=== PATIENT | female | born 1995 ===

== ENCOUNTER 2022-12-27 11:40 | Outpatient (CLI) | payer MEDICAID, SELFPAY | END 2022-12-27 11:41 | disposition home or self-care (01) | PROVIDERS: Visit Provider Student in an Organized Health Care Education/Training Program | DX: Z34.90 Encounter for supervision of normal pregnancy, unspecified, unspecified trimester (principal); Z3A.00 Weeks of gestation of pregnancy not specified | CPT/HCPCS: 36415; 86644; 86747 ==

== ENCOUNTER 2023-01-28 05:15 | Inpatient (IN) | payer MEDICAID, SELFPAY ==
[2023-01-28] VITALS (117 sets, daily range): BP systolic 95–174; BP diastolic 37–160; PULSE 59–139; RESP 18; TEMP 35.9–36.5; O2SAT 84–100; BMI 40.7
--- NOTE | 2023-01-28 05:15 | LDADM ---
This patient, Deirdre Mendoza, was admitted to Labor/Delivery/Recovery 103 on 01/28/23 at 05:15. Plans for labor, pain management and were discussed with patient. Patient/family oriented to hospital policies and general routines including ID bracelet, bed and alarms, visiting hours, pain management, procedures, bathroom and other care routines, personal items, smoking policy, room service/diet and guest tray routines, infant security routines, and visiting hours. Patient/Family are encouraged to report perceived risks to care and to ask questions if they do not understand what they are told or what they should do. See OBIX for further documentation.
[2023-01-28 06:01] LABS: Basophils Percent Auto 0.4 % (0.2-1.2); Eosinophils Absolute Auto 0.2 K/mm3 (0-0.3); Eosinophils Percent Auto 2.4 % (0-4.4); Hematocrit 35.8 % (37.0-47.0); Hemoglobin 12.1 g/dL (12.0-15.0); Immature Granulocyte Absolute 0.03 K/mm3 (0.00-0.031); Immature Granulocyte Percent A 0.3 % (0-0.5); Lymphocytes Absolute Auto 2.87 K/mm3 (0.9-3.2); Lymphocytes Percent Auto 31.1 % (18.3-44.2); Mean Corpuscular HGB Conc 33.8 g/dl (32-36); Mean Corpuscular Hemoglobin 29.4 pg (26-34); Mean Corpuscular Volume 87.1 fl (80-100); Mean Platelet Volume 12.6 fl (7.4-10.4); Monocytes Absolute Auto 0.5 K/mm3 (0.1-0.6); Monocytes Percent Auto 4.9 % (2.6-8.5); Neutrophils Absolute Auto 5.6 K/mm3 (1.3-6.7); Neutrophils Percent Auto 60.9 % (45.5-73.1); Platelet Count Result 166 k/mm3 (150-375); Red Blood Count 4.11 M/mm3 (4.2-5.4); Red Cell Distribution Width 13.8 % (11.5-14.5); White Blood Count 9.2 K/mm3 (4.5-10.0)
[2023-01-28 06:54] LABS: HIV 1/2 Ab P24 Ag Result Negative (Negative)
[2023-01-28] MEDS: OXYTOCIN 30 UNITS/NS 500 ML 30 UNITS/500 ML BAG IV CONT (07:00)
[2023-01-28] MEDS: LACTATED RINGERS 1,000 ML 125 ML IV CONT ×2 (07:01→12:33)
[2023-01-28] MEDS: fentaNYL CITRATE INJ (*CRX) 100 MCG/2 ML VIAL 50 MCG IV PUSH ×2 (08:32→11:55)
--- NOTE | 2023-01-28 08:56 | WPDANESEPP ---
Anes - Eval Pre Procedure Procedure: Labor Epidural Date/Time: 01/28/23 08:56 Surgeon: Wai Preop Diagnosis: Labor Pain Pre Op Diagnosis: IOL Patient Data Age: 27 Gender: F Height: 1.65 m Weight: 111 kg Last Vital Signs Temp 36.5 C 01/28/23 07:28 Pulse 65 01/28/23 08:45 BP 121/64 01/28/23 08:45 O2 Del Method Room Air 01/28/23 06:31 Allergies Allergy/AdvReac Type Severity Reaction Status Date / Time No Known Allergies Allergy Verified 01/23/23 13:31 Home Medications Medication Instructions Recorded Confirmed Type No Home Medications 12/20/22 01/28/23 History Laboratory Tests 01/28/23 05:51 WBC 9.2 K/mm3 (4.5-10.0) RBC 4.11 L M/mm3 (4.2-5.4) Hgb 12.1 g/dL (12.0-15.0) Hct 35.8 L % (37.0-47.0) MCV 87.1 fl (80-100) MCH 29.4 pg (26-34) MCHC 33.8 g/dl (32-36) RDW 13.8 % (11.5-14.5) Plt Count 166 k/mm3 (150-375) MPV 12.6 H fl (7.4-10.4) Immature Gran % (Auto) 0.3 % (0-0.5) Neut % (Auto) 60.9 % (45.5-73.1) Lymph % (Auto) 31.1 % (18.3-44.2) Travis % (Auto) 4.9 % (2.6-8.5) Eos % (Auto) 2.4 % (0-4.4) Baso % (Auto) 0.4 % (0.2-1.2) Lymph # (Auto) 2.87 K/mm3 (0.9-3.2) Travis # (Auto) 0.5 K/mm3 (0.1-0.6) Eos # (Auto) 0.2 K/mm3 (0-0.3) Baso # (Auto) 0.0 K/mm3 (0.0-0.1) Abs Immat Gran (auto) 0.03 K/mm3 (0.00-0.031) Absolute Neuts (auto) 5.6 K/mm3 (1.3-6.7) Absolute Nucleated RBC 0.0 K/mm3 (0.0-0.012) Nucleated RBC % 0.0 % (0.0-0.2) RPR Pending HIV 1&2 Ab/P24 Ag 4thGn Negative (Negative) Blood Type O Positive Antibody Screen Negative : gestational age (, ALBERTA 02/01/23) Patient hx anesthesia problems: none Family hx anesthesia problems: none Results Review: All pre-operative results and documents have been reviewed as part of the pre-operative evaluation. [facility] Surgical History Surgical History Hx of cholecystectomy Family History Family History Mother Diabetes mellitus Hypertension Father Diabetes mellitus Hypertension Social History Social History Smoking status: Former smoker Alcohol intake: former Substance use: never Lack of Transportation: No Lack of Food: Never True Current Housing: I Have Housing Concerned About Future Housing: No Difficulty Paying Gas/Electric Bills: No Difficulty Paying for Meds: No Currently Unemployed: No Education: High School Diploma/GED Difficulty w/ Childcare or Family Care: No Living arrangements: with family Occupation/Education: unemployed Gender identity (if verbalized by the patient): Female Sexual Orientation (if Verbalized by the Patient): Straight or Heterosexual Spiritual care concerns: No Exam Day of Procedure 01/28/23 08:56
[2023-01-28 10:57] LABS: Rapid Plasma Reagin Non-Reactive (NonReactive)
[2023-01-28] MEDS: fentaNYL CITRATE INJ (*CRX) 100 MCG/2 ML VIAL IV PUSH (12:56)
--- NOTE | 2023-01-28 14:42 | WPDHPUPDATE1 ---
History and Physical Update Update Date/Time: 01/28/23 14:42 27-year-old presents a 39 weeks for elective induction of labor. has been uncomplicated thus far. History and Physical has been reviewed, including an updated exam of the patient. There are NO changes in the patient's condition. Risks, benefits, and alternatives have been discussed and questions answered. Patient agrees to proceed with procedure. A/P: Admit to L&D Routine admission orders labs reviewed Rh positive GBS negative plan for Pitocin induction of labor Continuous external monitoring
--- NOTE | 2023-01-28 14:45 | PM.OBPRVD ---
OB - Delivery Note Procedure Procedure: Patient pushed for a spontaneous vaginal delivery. A loose nuchal cord x 1 was noted and reduced on the perineum. The fetus was delivered atraumatically and placed on the maternal abdomen. The cord was clamped and cut after 1 minute of life. The cord was double clamped and cut and a segment of cord was collected for cord gases. Cord blood was collected for blood type and Coomb's testing. The placenta delivered spontaneously and was noted to be intact. The perineum was inspected and there were no lacerations noted. The uterus was firm and good hemostasis was noted. The patient and fetus were stable in the delivery room. Delivery monitor: External FHT Route of delivery: Episiotomy description: None Specimen: No Quantitative Blood Loss (ml): 200 Disposition: Floor () Complications: No immediate complications Baby Time of : 14:06 Weeks of gestation at delivery: 39 gender: Female presentation: vertex position: Left Occiput Anterior Placenta delivery description: Spontaneous Cord Vessel Description: 3 Vessels, Nuchal Cord and Loose score one minute: 7 score five minutes: 9 AMG Delivery Billing Delivery Delivery: Delivery Charge
[2023-01-28] MEDS: OXYTOCIN 30 UNITS/NS 500 ML 30 UNITS/500 ML BAG 125 UNITS IV CONT (14:49)
--- NOTE | 2023-01-28 17:33 | PC.NURSE ---
Patient transferred to post room #291 via ( W/C ). Support person present. Oriented to unit, room, information board, rooming in, admission packet and security measures. Patient verbalizes understanding.
[2023-01-28] MEDS: WITCH HAZEL 40 PADS 1 PAD TOPICAL (18:38)
[2023-01-28] MEDS: BENZOCAINE 20% AER SPR (*SP) 56 GM CAN 1 SPRAY TOPICAL (18:38)
[2023-01-28] MEDS: IBUPROFEN 600 MG TABLET PO (19:32)
[2023-01-28] MEDS: ACETAMINOPHEN 325 MG TABLET 650 MG PO (21:28)
[2023-01-29 00:22] VITALS: BP 98/46; PULSE 73; RESP 18; TEMP 36.4; O2SAT 100
[2023-01-29] MEDS: IBUPROFEN 600 MG TABLET PO ×3 (01:42→16:40)
[2023-01-29 06:05] LABS: Hematocrit 28.8 % (37.0-47.0); Hemoglobin 9.3 g/dL (12.0-15.0)
[2023-01-29] MEDS: POLYSACCHARIDE IRON COMPLEX 150 MG CAPSULE PO ×2 (07:22→16:41)
[2023-01-29] MEDS: MULTIVIT/MIN/PREN/FOL AC/IRON TABLET 1 TAB PO (07:22)
[2023-01-29] MEDS: DOCUSATE SODIUM 100 MG CAPSULE PO (07:23)
--- NOTE | 2023-01-29 07:33 | PM.OBDSVD ---
DS: Admitting Diagnosis Discharge Date 01/29/23 Admitting Diagnosis intrauterine at term DS: Discharge Diagnosis Discharge Diagnosis (1) Supervision of high risk , unspecified, third trimester: Code(s): O09.93 - Supervision of high risk , unspecified, third trimester Status: Acute OB - DS: Summary OB Procedures : None OB Procedures Intrapartum: Spontaneous Vag Delivery OB Procedures: : None Status at Discharge Functional status at discharge: independent ambulation Overall status at discharge: patient is back to baseline Time Spent with Patient Time attestation: Total time spent providing and/or coordinating discharge services: Time spent: Less than 30 minutes Exam Const: General: comfortable and no acute distress Resp: Effort & Inspection: normal respiratory effort Auscultation: clear to auscultation bilaterally Cardio: Rate: regular rate GI: GI Palp: Yes Soft to palpation Auscultation: normal bowel sounds Other: Fundus firm below umbilicus Psych: Appearance: grossly normal Mental Status: mental status grossly normal Affect: normal affect DS: Data Data Completed and Pending Labs on day of discharge: Labs from last 24 hours 01/29/23 01/28/23 05:57 05:51 Hgb 9.3 L Hct 28.8 L RPR Non-reactive Discharge Plan Discharge Discharging Clinician: Amado Carreno Patient Disposition: Home, Self-Care Activity: as tolerated and pelvic rest Diet: regular Patient Instructions: Antibiotic Form, Vaginal Delivery (DC) Stand Alone Forms: General Discharge Information Follow-up/Referrals: Amado Carreno MD [Physician] - Discharge Medications: New polysaccharide iron complex 150 mg iron Capsule 150 mg PO BIDWM Qty: 60 0RF acetaminophen 500 mg tablet 500 mg PO Q6H PRN (Reason: pain) Qty: 30 0RF ibuprofen 600 mg tablet 600 mg PO Q6H PRN (Reason: pain) Qty: 30 0RF No Action No Home Medications Date of admission: 01/28/23 05:15 Primary Care Provider: PHYSICIAN,PRODUCTS MECHANICAL DESIGN ENGINEER Admitting Provider: Amado Carreno Attending physician on admission: Amado Carreno Condition: Stable
[2023-01-29 08:38] VITALS: BP 119/59; PULSE 71; RESP 18; TEMP 36.3; O2SAT 99
[2023-01-29] MEDS: ACETAMINOPHEN 325 MG TABLET 650 MG PO (11:35)
[2023-01-29 12:26] VITALS: BP 111/68; PULSE 79; RESP 16; TEMP 36.5; O2SAT 98
== END 2023-01-29 17:38 | disposition home or self-care (01) | DRG 560 ==
LOC: ANHLDR 05:23 → ANHOB2 17:35
PROVIDERS: Admitting Provider Student in an Organized Health Care Education/Training Program; Visit Provider Student in an Organized Health Care Education/Training Program
DX: O69.81X0 Labor and delivery complicated by cord around neck, without compression, not applicable or unspecified (principal); Z37.0 Single live birth; Z3A.39 39 weeks gestation of pregnancy
CPT/HCPCS: 36415; 85014; 85018; 85025; 86592; 86703; 86850; 86900; 86901; A9270; G0432; J2590; J2795; J3010; J7120

== ENCOUNTER 2023-03-18 10:28 | Outpatient (CLI) | payer OTHER, SELFPAY ==
[2023-03-18 11:02] LABS: Basophils Percent Auto 0.6 % (0.2-1.2); Eosinophils Absolute Auto 0.1 K/mm3 (0-0.3); Eosinophils Percent Auto 2.2 % (0-4.4); Hematocrit 37.7 % (37.0-47.0); Hemoglobin 12.3 g/dL (12.0-15.0); Immature Granulocyte Absolute 0.02 K/mm3 (0.00-0.031); Immature Granulocyte Percent A 0.3 % (0-0.5); Lymphocytes Percent Auto 46.1 % (18.3-44.2); Mean Corpuscular HGB Conc 32.6 g/dl (32-36); Mean Corpuscular Hemoglobin 29.6 pg (26-34); Mean Corpuscular Volume 90.6 fl (80-100); Mean Platelet Volume 11.3 fl (7.4-10.4); Monocytes Absolute Auto 0.4 K/mm3 (0.1-0.6); Monocytes Percent Auto 6.3 % (2.6-8.5); Neutrophils Absolute Auto 2.9 K/mm3 (1.3-6.7); Neutrophils Percent Auto 44.5 % (45.5-73.1); Platelet Count Result 219 k/mm3 (150-375); Red Blood Count 4.16 M/mm3 (4.2-5.4); Red Cell Distribution Width 13.3 % (11.5-14.5); White Blood Count 6.5 K/mm3 (4.5-10.0)
[2023-03-18 11:14] LABS: Alanine Aminotransferase 32 U/L (6-35); Albumin Level 4.5 g/dL (3.5-5.1); Alkaline Phosphatase 59 U/L (38-126); Anion Gap 8 mmol/L (8-16); Aspartate Amino Transferase 31 U/L (14-36); Bilirubin,Total 0.5 mg/dL (0.2-1.3); Blood Urea Nitrogen 14 mg/dL (7-17); Calcium 9.1 mg/dL (8.4-10.2); Carbon Dioxide 26 mmol/L (22-30); Chloride 105 mmol/L (98-107); Cholesterol 173 mg/dL (0-200); Estimated Glomerular Filt Rate > 60; Glucose 94 mg/dL (65-110); HDL Direct 55 mg/dL; Potassium 4.2 mmol/L (3.4-5.0); Sodium 139 mmol/L (137-145); Triglycerides 173 mg/dL (<150)
[2023-03-18 11:25] LABS: LDL Cholesterol Direct 88 mg/dL
[2023-03-18 11:29] LABS: Beta HCG Quantitative < 2.39 mIU/ML
[2023-03-18 11:48] LABS: Thyroid Stimulating Hormone Reflex 0.995 uIU/mL (0.465-4.68)
[2023-03-18 12:04] LABS: Vitamin D 25 Hydroxy 26.2 ng/mL
[2023-03-18 12:19] LABS: Folic Acid 14.1 ng/mL (2.76->20)
== END 2023-03-18 10:29 | disposition home or self-care (01) ==
PROVIDERS: Referring Provider Internal Medicine; Visit Provider Student in an Organized Health Care Education/Training Program
DX: Z30.430 Encounter for insertion of intrauterine contraceptive device (principal); E55.9 Vitamin D deficiency, unspecified; R79.89 Other specified abnormal findings of blood chemistry
CPT/HCPCS: 36415; 80053; 80061; 82306; 82607; 82746; 84443; 84702; 85025

== ENCOUNTER 2023-06-07 02:23 | Emergency (ER) | payer OTHER, SELFPAY ==
--- NOTE | ~2023-06-07 | XR_ITS ---
Portable chest x-ray Comparison: None Clinical History: Chest pain Findings: Lungs are clear, without focal consolidation or pleural effusion. Cardiomediastinal silho uette is unremarkable. Bones and soft tissues are unremarkable. Impression: Normal chest. Reviewed, dictated and finalized at location M. LTY PRINTING MACHINE OPERATOR Impression: Normal chest.
[2023-06-07 02:27] VITALS: BP 134/84; PULSE 84; RESP 16; TEMP 36.7; O2SAT 100
[2023-06-07 03:26] VITALS: BP 139/80; PULSE 77; PULSE 79; RESP 13; TEMP 36.4; O2SAT 99
[2023-06-07 04:57] VITALS: BP 127/74; PULSE 75; RESP 17; O2SAT 100
--- NOTE | 2023-06-07 06:38 | ECG_ITS ---
Measurements Intervals [place] Rate: 71 P: 37 NM: 157 QRS: 55 QRSD: 93 T: 34 QT: 401 QTc: 436 Interpretive Statements SINUS RHYTHM BASELINE ARTIFACT- I, III, AVR, AVL NORMAL ECG NO PREVIOUS ECG AVAILABLE FOR COMPARISON Electronically Signed On 06-07-2023 7:01:22 TAX ADVISOR by Gulshan Escudero D.O.
--- NOTE | 2023-06-07 06:38 | ED.GENADULT ---
HPI - General Adult General Chief complaint: Unspecified Stated complaint: bodyaches Time Seen by Provider: 06/07/23 05:10 Source: patient Limitations: no limitations History of Present Illness HPI narrative: Patient is a 28-year-old female presents to the emergency department complaining of ?not feeling well? for the past 2-3 days. Patient states that she is having some aches in her lower back in addition to her chest and states that she has diffuse chest ?discomfort? States that it is not a pain necessarily however she does get some slight pain when she takes a deep breath in for denies any history of this pain in the past, denies radiation of pain, states it comes and goes, has not tried anything for the pain, has a nose anything making the pain better or worse. Patient denies cough, fever, recent injuries, recent illness, diarrhea, nausea, vomiting, diaphoresis, rash, numbness, weakness, abdominal pain, dysuria, hematuria, urinary frequency, urinary urgency, sore throat, nasal congestion, sick contacts. Patient states her last menstrual period was sometime in April however she got started on control at the time of her delivering a baby approximately 4 months ago. Patient also states she was recently started on a new medication for high cholesterol. Patient also notes separately that she sometimes gets some tingling in her fingers when she is lying down with his clothes away promptly when not lying down and seems to be positional. Patient denies being a smoker, denies history of hypertension or diabetes. Related Data Home Medications Medication Instructions Recorded Confirmed etonogestrel 68 mg subdermal 1 implant subdermal ONCE 03/19/23 implant (Nexplanon) Allergies Allergy/AdvReac Type Severity Reaction Status Date / Time No Known Allergies Allergy Verified 03/19/23 14:05 Review of Systems Review of Systems: A 10 system review of systems was completed on the patient and is negative except for what is stated in the HPI. Nursing and ancillary documentation was reviewed. [facility] Past Medical History Medical History (Updated 06/07/23 @ 07:57 by Doni Finley DO) Encounter for surveillance of other contraceptives Surgical History Surgical History (Updated 03/19/23 @ 14:06 by Pamela Zhang CMA) H/O gynecological procedure Nexplanon insertion 03/19/23 Hx of cholecystectomy Family History Family History Mother Diabetes mellitus Hypertension Father Diabetes mellitus Hypertension Social History Social History Smoking status: Former smoker Alcohol intake: former Substance use: never Lack of Transportation: No Lack of Food: Never True Current Housing: I Have Housing Concerned About Future Housing: No Difficulty Paying Gas/Electric Bills: No Difficulty Paying for Meds: No Currently Unemployed: No Education: High School Diploma/GED Difficulty w/ Childcare or Family Care: No Living arrangements: with family Occupation/Education: unemployed Gender identity (if verbalized by the patient): Female Sexual Orientation (if Verbalized by the Patient): Straight or Heterosexual Spiritual care concerns: No Comments At time of signature, I have reviewed and agree with nursing past medical, surgical, social and family history unless otherwise noted. Please see the nursing chart for further information. There is no relevant family history pertinent to the presenting complaint. Exam Narrative: CONST: No acute distress. Well nourished. Obese. HENMT: Head is normocephalic and atraumatic. Moist mucous membranes. No posterior oropharynx erythema. EYES: No conjunctival icterus, injection, or pallor. PERRL. NECK: No meningeal signs. RESP: Able to speak in full sentences. Normal respiratory effort. CTAB. CARDIO: Regular rate. Regular rhythm. 2+ DP and radial
[2023-06-07] MEDS: ASPIRIN 81 MG CHEWABLE TABLET 324 MG PO (06:58)
[2023-06-07] MEDS: HYDROcodone/acetaminophen (*CRX) 5-325 MG TABLET 1 TAB PO (06:59)
[2023-06-07 07:00] LABS: Basophils Absolute Auto 0.1 K/mm3 (0.0-0.1); Basophils Percent Auto 0.8 % (0.2-1.2); Eosinophils Absolute Auto 0.3 K/mm3 (0-0.3); Eosinophils Percent Auto 3.5 % (0-4.4); Hematocrit 39.2 % (37.0-47.0); Hemoglobin 12.7 g/dL (12.0-15.0); Immature Granulocyte Absolute 0.03 K/mm3 (0.00-0.031); Immature Granulocyte Percent A 0.3 % (0-0.5); Lymphocytes Absolute Auto 3.59 K/mm3 (0.9-3.2); Lymphocytes Percent Auto 40.8 % (18.3-44.2); Mean Corpuscular HGB Conc 32.4 g/dl (32-36); Mean Corpuscular Hemoglobin 28.9 pg (26-34); Mean Corpuscular Volume 89.3 fl (80-100); Mean Platelet Volume 11.4 fl (7.4-10.4); Monocytes Absolute Auto 0.6 K/mm3 (0.1-0.6); Monocytes Percent Auto 6.6 % (2.6-8.5); Neutrophils Absolute Auto 4.2 K/mm3 (1.3-6.7); Platelet Count Result 241 k/mm3 (150-375); Red Blood Count 4.39 M/mm3 (4.2-5.4); Red Cell Distribution Width 13.4 % (11.5-14.5); White Blood Count 8.8 K/mm3 (4.5-10.0)
[2023-06-07 07:08] LABS: Creatine Kinase 136 U/L (30-135)
[2023-06-07 07:14] LABS: Alanine Aminotransferase 30 U/L (6-35); Albumin Level 4.2 g/dL (3.5-5.1); Alkaline Phosphatase 59 U/L (38-126); Anion Gap 9 mmol/L (8-16); Aspartate Amino Transferase 30 U/L (14-36); Bilirubin,Total 0.4 mg/dL (0.2-1.3); Blood Urea Nitrogen 9 mg/dL (7-17); Calcium 9.1 mg/dL (8.4-10.2); Carbon Dioxide 25 mmol/L (22-30); Chloride 107 mmol/L (98-107); Estimated CRCL calculation 175 ml/min; Estimated Glomerular Filt Rate > 60; Glucose 95 mg/dL (65-110); Lipase 79 U/L (23-300); Magnesium 1.9 mg/dL (1.6-2.3); Potassium 3.9 mmol/L (3.4-5.0); Sodium 141 mmol/L (137-145)
[2023-06-07 07:23] LABS: Troponin I < 0.012 ng/mL (0.000-0.034)
[2023-06-07 07:30] VITALS: BP 136/74; PULSE 80; RESP 18; O2SAT 100
[2023-06-07 07:34] LABS: SPREG INTERNAL CONTROL Positive; Serum Qual hCG Negative
[2023-06-07 07:36] LABS: Influenza A QL RT-PCR Negative (Negative); Influenza B QL RT-PCR Negative (Negative); RSV RNA, RT-PCR Negative (Negative); SARS-CoV-2 RNA PCR Negative (Negative)
[2023-06-07 07:53] LABS: Prothrombin Time 13.4 Seconds (11.1-14.7)
[2023-06-07 07:55] LABS: Partial Thromboplastin Time 26.4 SECONDS (22.3-36.8)
[2023-06-07 08:00] VITALS: BP 131/82; PULSE 78; RESP 18; O2SAT 99
[2023-06-07 08:03] LABS: D Dimer < 0.27 ug/mL (<0.48)
== END 2023-06-07 08:20 | disposition home or self-care (01) ==
PROVIDERS: Emergency Provider Student in an Organized Health Care Education/Training Program; PCP Internal Medicine
DX: R07.9 Chest pain, unspecified (principal); Z20.822 Contact with and (suspected) exposure to COVID-19; E78.00 Pure hypercholesterolemia, unspecified; Z87.891 Personal history of nicotine dependence; Z90.49 Acquired absence of other specified parts of digestive tract
CPT/HCPCS: 36415; 71045; 80053; 82550; 83690; 83735; 84484; 84703; 85025; 85380; 85610; 85730; 87637; 93005; 99284; A9270